=== PATIENT | female | born 1955 | race Caucasian/White ===

== ENCOUNTER → 2017-12-01 | Outpatient (CLI) | payer OTHER | LOC: BRMIMAGING 14:30 | PROVIDERS: ATTEND Internal Medicine Rheumatology | DX: M25.831 Other specified joint disorders, right wrist (principal); M25.832 Other specified joint disorders, left wrist; M79.642 Pain in left hand; M79.641 Pain in right hand | CPT/HCPCS: 73100-PO; 73120-PO ==